=== PATIENT | male | born 1970 | race Caucasian/White ===

== ENCOUNTER 2021-07-25 07:37 | Day surgery (SDC) | payer OTHER ==
[~2021-07-25] VITALS: Ht 182.9 cm; Wt 80.0 kg
[2021-07-25 08:11] VITALS: BP 137/99
--- NOTE | 2021-07-25 08:11 | NUR ---
patient to [facility] ambulatory. patient is alert and oriented x3. admission assessment completed at this time. consent obtained. iv established. labs obtained and sent to lab for reference.oriented patient to room and unit. call light in reach. will continue to monitor
[2021-07-25 08:57] VITALS: BP 137/99
[2021-07-25 09:41] LABS: HEMOGLOBIN 11.5 g/dl (14.0-18.0); IMMATURE GRANULOCYTES 0.2 % (0.0-5.0); MEAN CELL VOLUME 95.4 fL CALC (80.0-100.0); MEAN CORPUSCULAR HGB 31.3 pG CALC (26.0-32.0); MEAN CORPUSCULAR HGB CONC 32.9 g/dL CAL (32.0-36.0); NEUT# 3.62 thou/uL (1.82-7.42); RED BLOOD COUNT 3.67 mill/uL (4.70-6.10); RED CELL DISTRI WIDTH 13.7 % (11.5-15.5)
[2021-07-25 09:55] LABS: ALBUMIN 3.6 g/dL (3.2-5.0); ALKALINE PHOSPHATASE 113 u/l (38-126); ANION GAP 7 (6-22 (CALC)); BILIRUBIN, TOTAL 0.5 mg/dL (0.0-1.4); BUN 11 mg/dL (9-20); BUN/CREATININE RATIO 13 (12-20 (CALC)); CARBON DIOXIDE 29 mmol/l (22-30); CHLORIDE 102 mmol/l (95-108); CREATININE 0.8 mg/dL (0.7-1.3); GFR > 60 ML/MIN (>=60 (CALC)); GFR FOR AFR.AMER. > 60 ML/MIN (>=60 (CALC)); SGOT/AST 35 u/l (17-59); SODIUM 134 mmol/l (137-146); TOTAL PROTEIN 6.8 g/dL (6.3-8.2)
--- NOTE | 2021-07-25 11:03 | NUR ---
dr french and amos gutierres at bedside at this time to discuss covid positive results and that procedure would need to be rescheduled.
--- NOTE | 2021-07-25 12:30 | NUR ---
PATIENT SITTING UP IN BED EATING LUNCH. PATIENT IS ALERT AND ORIENTED X3
--- NOTE | 2021-07-25 13:15 | NUR ---
Discharge instructions given. Patient verbalizes understanding of same. Discharged in stable condition via Wheelchair to Home with family. All belongings sent with pt.
== END 2021-07-25 13:15 | disposition home or self-care (01) | DRG 896 ==
LOC: ANR 07:37 → MS2 07:44 → ANR 13:15
PROVIDERS: ATTEND Anesthesiology
DX: F11.20 Opioid dependence, uncomplicated (principal); U07.1 COVID-19; F43.10 Post-traumatic stress disorder, unspecified; Z53.9 Procedure and treatment not carried out, unspecified reason

== ENCOUNTER 2021-08-28 07:00 | Day surgery (SDC) | payer OTHER ==
[2021-08-28] VITALS (69 sets, daily range): BP systolic 90–154; BP diastolic 57–110
[~2021-08-28] VITALS: Ht 182.9 cm; Wt 85.0 kg
[2021-08-28 09:44] LABS: ALKALINE PHOSPHATASE 88 u/l (38-126); ANION GAP 11 (6-22 (CALC)); BILIRUBIN, TOTAL 0.5 mg/dL (0.0-1.4); BUN 17 mg/dL (9-20); BUN/CREATININE RATIO 19 (12-20 (CALC)); CARBON DIOXIDE 24 mmol/l (22-30); CHLORIDE 106 mmol/l (95-108); CREATININE 0.9 mg/dL (0.7-1.3); GFR > 60 ML/MIN (>=60 (CALC)); GFR FOR AFR.AMER. > 60 ML/MIN (>=60 (CALC)); POTASSIUM 3.9 mmol/l (3.5-5.1); SGOT/AST 28 u/l (17-59); SODIUM 137 mmol/l (137-146); TOTAL PROTEIN 6.8 g/dL (6.3-8.2)
[2021-08-28 10:05] LABS: HEMATOCRIT 40.9 % (39.0-50.0); HEMOGLOBIN 13.4 g/dl (14.0-18.0); MEAN CORPUSCULAR HGB 30.8 pG CALC (26.0-32.0); MEAN CORPUSCULAR HGB CONC 32.8 g/dL CAL (32.0-36.0); NEUT# 2.62 thou/uL (1.82-7.42); RED BLOOD COUNT 4.35 mill/uL (4.70-6.10); RED CELL DISTRI WIDTH 13.7 % (11.5-15.5)
[2021-08-28] MEDS ORDERED: CLONIDINE0.1 MG PO (11:48)
[2021-08-28] MEDS ORDERED: NALTREXONE50 MG PO (11:49)
[2021-08-28] MEDS ORDERED: KLONOPIN0.5 MG PO (11:49)
[2021-08-29 04:43] VITALS: BP 139/85
[2021-08-29 05:30] LABS: HEMATOCRIT 45.5 % (39.0-50.0); HEMOGLOBIN 14.9 g/dl (14.0-18.0); IMMATURE GRANULOCYTES 0.3 % (0.0-5.0); MEAN CELL VOLUME 93.2 fL CALC (80.0-100.0); MEAN CORPUSCULAR HGB 30.5 pG CALC (26.0-32.0); MEAN CORPUSCULAR HGB CONC 32.7 g/dL CAL (32.0-36.0); NEUT# 2.82 thou/uL (1.82-7.42); RED BLOOD COUNT 4.88 mill/uL (4.70-6.10); RED CELL DISTRI WIDTH 13.1 % (11.5-15.5)
[2021-08-29 05:55] LABS: ALKALINE PHOSPHATASE 90 u/l (38-126); BILIRUBIN, TOTAL 0.7 mg/dL (0.0-1.4); BUN 12 mg/dL (9-20); BUN/CREATININE RATIO 13 (12-20 (CALC)); CHLORIDE 107 mmol/l (95-108); CREATININE 0.9 mg/dL (0.7-1.3); GFR > 60 ML/MIN (>=60 (CALC)); GFR FOR AFR.AMER. > 60 ML/MIN (>=60 (CALC)); MAGNESIUM 2.8 mg/dL (1.6-2.3); SGOT/AST 27 u/l (17-59); SODIUM 141 mmol/l (137-146); TOTAL PROTEIN 6.9 g/dL (6.3-8.2)
[2021-08-29 05:58] LABS: ANION GAP 10 (6-22 (CALC)); CARBON DIOXIDE 29 mmol/l (22-30); POTASSIUM 4.8 mmol/l (3.5-5.1)
[2021-08-29 10:22] VITALS: BP 100/66
[2021-08-29 12:59] VITALS: BP 101/72
[2021-08-29 13:00] VITALS: BP 101/72
[2021-08-29 16:09] VITALS: BP 99/63
== END 2021-08-29 17:24 | disposition home or self-care (01) | DRG 897 ==
LOC: ANR 07:00 → MS2 07:00 → ANR 12:39
PROVIDERS: ATTEND Anesthesiology
DX: F11.20 Opioid dependence, uncomplicated (principal)
CPT/HCPCS: J2060; J2354; J3475